=== PATIENT | female | born 1960 | race Caucasian/White ===

== ENCOUNTER 2017-01-22 06:23 | Day surgery (SDC) | payer BC ==
[~2017-01-22] VITALS: Ht 170.2 cm; Wt 94.5 kg
[2017-01-22] VITALS (8 sets, daily range): BP systolic 106–122; BP diastolic 58–73; PULSE 54–74; RESP 14–35; Ht 170.2 cm; Wt 94.5 kg
[2017-01-22] MEDS ORDERED: BUPIVACAINE 0.5% (SDV) 30 ML INJ ONE (06:55)
[2017-01-22] MEDS ORDERED: POLYMYXIN/BACITRACIN 1L IRRIG ONE (06:56)
[2017-01-22] MEDS ORDERED: LIDOCAINE 1% (STERILE-PAK) 30 ML INJ ONE (06:56)
[2017-01-22] MEDS ORDERED: ROPIVACAINE 0.5 % 30 ML VIAL ONE (07:32)
[2017-01-22] MEDS ORDERED: LIDOCAINE 2% (SDV) 5 ML INJ ONE (07:32)
[2017-01-22] MEDS ORDERED: PROPOFOL 20 ML ONE (07:32)
--- NOTE | 2017-01-22 07:43 | HPN ---
Date/Time of Note Date/Time of Note DATE: 01/22/17 TIME: 07:43 Interval H&P Admission Note Pt. seen H&P reviewed: No system changes DIANA OCAMPO DPM Jan 22, 2017 07:43
[2017-01-22] MEDS ORDERED: CYMBALTA PO (07:50)
[2017-01-22] MEDS ORDERED: ASPI-664 PO (07:50)
[2017-01-22] MEDS ORDERED: FLUT200B INHALATION (07:50)
[2017-01-22] MEDS ORDERED: MELATONIN PO (07:50)
[2017-01-22] MEDS ORDERED: HYDR-3498 PO (07:50)
[2017-01-22] MEDS ORDERED: GABA400C14 PO (07:50)
[2017-01-22] MEDS ORDERED: TRAZ100T15 PO (07:50)
[2017-01-22] MEDS ORDERED: PROP20TA4 PO (07:50)
[2017-01-22] MEDS ORDERED: AMLO1CAP8 PO (07:50)
[2017-01-22] MEDS ORDERED: ESTR1TAB15 PO (07:50)
[2017-01-22] MEDS ORDERED: ATOR10TA65 PO (07:50)
[2017-01-22] MEDS ORDERED: morphine (1 MG/ML) 10ML SYRINGE IV PRN ×2 (08:00)
[2017-01-22] MEDS ORDERED: MIDAZOLAM 1 MG/ML 2 ML INJ IV PRN (08:00)
[2017-01-22] MEDS ORDERED: FENTAnyl 50 MCG/ML VIAL IV PRN ×2 (08:00)
[2017-01-22] MEDS ORDERED: hydrALAzine 20 MG INJ IV PRN (08:00)
[2017-01-22] MEDS ORDERED: EPHEDrine SULFATE 50 MG/5 ML SYG IV PRN (08:00)
[2017-01-22] MEDS ORDERED: DIPHENHYDRAMINE 50 MG INJ IV PRN (08:00)
[2017-01-22] MEDS ORDERED: MEPERIDINE 25 MG INJ IV PRN (08:00)
[2017-01-22] MEDS ORDERED: LABETALOL HCL 20MG INJ IV PRN (08:00)
[2017-01-22] MEDS ORDERED: ONDANSETRON 4 MG INJ IV PRN (08:00)
[2017-01-22] MEDS ORDERED: METOCLOPRAMIDE 10 MG INJ IV PRN (08:00)
[2017-01-22] MEDS ORDERED: HYDROmorphONE (0.2 MG/ML) 10ML SYG IV PRN ×2 (08:00)
[2017-01-22] MEDS ORDERED: ATROPINE 1 MG/10 ML SYRINGE ONE (08:13)
[2017-01-22] MEDS ORDERED: ONDANSETRON 4 MG INJ ONE (08:19)
[2017-01-22] MEDS ORDERED: METOCLOPRAMIDE 10 MG INJ ONE (08:19)
[2017-01-22] MEDS ORDERED: CEFAZOLIN 1 GM INJ ONE (08:19)
--- NOTE | 2017-01-22 10:10 | OPR ---
DATE OF OPERATION: 01/22/2017 SURGEON: Renard Banda DPM [employer]: Dominique Ortiz DPM ANESTHESIOLOGIST: Dr. Stout ANESTHESIA: General. PREOPERATIVE DIAGNOSIS: Arthritic left subtalar joint. POSTOPERATIVE DIAGNOSIS: Arthritic left subtalar joint. OPERATION PERFORMED: Arthrodesis, left subtalar joint. DESCRIPTION OF PROCEDURE: The patient was brought into the operating room, placed on the table in a secure supine position. Cardiac monitoring, IV sedation, and an ankle pneumatic tourniquet were ut ilized for this case. A gentle anesthesia was utilized for this case. Preoperatively a popliteal b lock was administered by the anesthesiologist. The foot and leg were prepped and draped in the usua l sterile technique. The thigh tourniquet was utilized and inflated to 300 mmHg. Procedure #1 was then performed, arthrodesis, left subtalar joint. A curvilinear incision was placed from the tip of the fibula to the base of the fourth and fifth metatarsals. The incision was deepened, superficial bleeders were cauterized and bovied as necessary. The incision was deepened down through the tenso r brevis muscle. The peroneal tendons were reflected plantarly. The subtalar joint was identified and was distracted with the bone distractor. At this point, the posterior facet was identified whic h was sclerotic and arthritic. Utilizing curettage and Remy elevator the cartilaginous surfaces were denuded. The bone was then fenestrated with a 0.062 K-wire. At this point, the surgical site was irrigated with copious amounts of sterile saline mixed with bacitracin solution. Vitoss bone substi tute was inserted to aid in arthrodesis. The K-wire for the 5.0 cannulated [place] screw was insert ed through the posterior calcaneus superiorly through the talar body. Intraoperative fluoroscopy wa s utilized for assistance. Good alignment and fixation was noted with the temporary fixation K-wire . The 5.0 mm x 80 mm cannulated Fairview screw was inserted over the pin, using intraoperative fluor oscopy the screw was advanced through the posterior facet of the subtalar joint, bringing the heel i nto a rectus position out of valgus alignment. Good intraoperative position was noted of the subtal ar joint. The deep tissue was closed with 2-0 and 3-0 Vicryl simple interrupted sutures. The skin edges were reapproximated with a running 3-0 Prolene subcuticular stitch. The dressing consisted of Xeroform gauze, tincture of benzoin, 1/4-inch Steri-Strips, 4 x 4 gauze, 4-inch Kerlix roll followe d by 2 inch Coban into a semi-compressive dressing. The pneumatic tourniquet was deflated, immediat e hyperemia was noted to all digits of the left foot. The posterior splint was then applied. Posto peratively, the patient will remain completely nonweightbearing. The patient tolerated the above pr ocedure well, left the OR with vital signs stable and satisfactory. The patient will follow up 1 we ek postop. Dictated By: RENARD VIEIRA/MICHAEL Conf#: [id number] DID#: [id number] CC: DOMINIQUE ORTIZ DPM;*EndCC*
--- NOTE | 2017-01-22 13:16 | RADRPT ---
PROCEDURE: Intraoperative imaging of the left calcaneus with fluoroscopy. CLINICAL INDICATION: Left calcaneus pain. Intraoperative. TECHNIQUE: 6 images of the left calcaneus were obtained in the operating room with an image intens ifier. No radiologist was in attendance. 22 seconds of fluoroscopy time was used. COMPARISON: No prior study is available for comparison. FINDINGS: Images demonstrate fusion of the subtalar joint with a cannulated screw. IMPRESSION: 1. Intraoperative imaging of the left calcaneus. RPTAT: QQ .Rickey Gallego MD, Date Time Electronically viewed and signed by .Rickey Gallego MD, MD on 01/22/2017 13:16 .R/
== END 2017-01-22 10:39 | disposition home or self-care (01) ==
LOC: SDS 06:23
PROVIDERS: ATTEND Podiatrist Primary Podiatric Medicine
DX: M13.872 Other specified arthritis, left ankle and foot (principal); I10 Essential (primary) hypertension; E78.5 Hyperlipidemia, unspecified; J44.9 Chronic obstructive pulmonary disease, unspecified; E66.9 Obesity, unspecified; Z68.32 Body mass index [BMI] 32.0-32.9, adult
CPT/HCPCS: 28725; 73630; C1713; J0461; J0690; J2405; J2765; J2795; Z7512; Z7610